=== PATIENT | female | born 1995 | race Caucasian/White ===

== ENCOUNTER → 2021-10-04 | Outpatient (CLI) | payer OTHER ==
[2021-10-04 13:52] LABS: HEMATOCRIT 43.6 % (37.0-47.0); MCH 31.2 pg (26.0-34.0); MCHC 34.4 g/dL (28.0-37.0); MCV 90.5 fL (80.0-100.0); RBC 4.82 mil/uL (4.20-5.00)
[2021-10-04 13:59] LABS: ALBUMIN 3.7 g/dL (3.4-5.0); CALCIUM 9.1 mg/dL (8.5-10.1); CREATININE 0.9 mg/dL (0.6-1.0); DIRECT BILIRUBIN 1.7 mg/dL (<0.1-0.2); POTASSIUM 3.9 mmol/L (3.5-5.1); TOTAL BILIRUBIN 2.7 mg/dL (0.2-1.0); TOTAL PROTEIN 7.9 g/dL (6.4-8.2)
[2021-10-04 14:02] LABS: INR 1.03; PROTIME 11.2 Seconds (10.5-12.1)
== END ==
LOC: LAB 13:16
PROVIDERS: ATTEND Internal Medicine Gastroenterology
DX: R79.89 Other specified abnormal findings of blood chemistry (principal)